=== PATIENT | female | born 1935 | race Two or more races ===

== ENCOUNTER 2019-05-02 13:16 | Emergency (ER) | payer MEDICARE, MEDICAID ==
[~2019-05-02] VITALS: Ht 160 cm; Wt 53.5 kg
--- NOTE | 2019-05-02 13:27 | Emergency Room Report ---
History of Present Illness General Chief Complaint: Altered Level of Consciousness Source: Patient (Garrett Villarreal MD) Present Illness HPI Patient is an 84-year-old female brought in by walk-in after increased altered mental status. Patient had become more confused. Sudden onset of symptoms. Prior history of diabetes as well as pacemaker placement. Patient was noted to be less responsive than usual.Patient had recent fall from standing. She fell this morning at 10 am. Does not take blood thinners other than aspirin. Apparently she had acute onset of diarrhea. This was watery nature. Patient had prior history of diabetes as well as hypertension. She had previous pacemaker placement. (Garrett Villarreal MD) Allergies: Coded Allergies: No Known Allergies (Unverified , 05/02/19) Patient History Past Surgical History: pacemaker Reviewed Nursing Documentation: PMH: Agreed; PSxH: Agreed (Garrett Villarreal MD) Review of Systems All Other Systems: limited - by poor historian (Garrett Villarreal MD) Physical Exam General Appearance: severe distress, Stupor Eyes: bilateral eye other - disconjugate gaze ENT: other - decreased gag reflex Neck: limited range of motion Respiratory: lungs clear Cardiovascular #1: normal inspection Gastrointestinal: tenderness - epigastric Musculoskeletal: other - limited ROM Neurologic: aphasia, other - GCS 3, slight gag present Skin: pallor (Garrett Villarreal MD) Procedures Intubation Intubation : Consent: Emergent Intubation Method: orotracheal Tube Size (cm): 7.5 Medications: Etomidate, Succinylcholine Breath Sounds after Intubation: equal Intubation Complications: no complications Post Intubation Xray: Yes Progress/Xray Impression: Appropriate tube placement Attempts: One Patient Tolerated: Well Complications: None (Anya Lawson DO) Medical Decision Making Diagnostic Impression: Primary Impression: Bilateral subdural hematomas Additional Impressions: Intracranial hemorrhage Mental status, decreased Elevated troponin Anemia ER Course Presented for altered mental status. Differential diagnosis include was not limited to CVA, hyperglycemia, sepsis, anemia among others. Because of complexity of patient's case laboratory tests and imaging studies were ordered. CT imaging was ordered to patient's acute onset of altered mental status after fall.CT the head showed bilateral intracranial hemorrhages. Patient was endorsed to Dr. Pritchard for further management and likely transfer for higher level of care. Patient was discussed with Dr. Samuel at [facility] who agreed to accept the patient. (Garrett Villarreal MD) ER Course This patient was turned over to me by Dr. Villarreal. The patient had suffered a fall earlier this morning and was found to have intracranial hemorrhage with midline shift. The patient's GCS was 3 and therefore she was intubated by rapid sequence intubation. This was uncomplicated. See my procedure note. The patient was given IV Keppra, mannitol and the head of bed was elevated. The patient was emergently transferred to [facility] for neurosurgical expertise. Initially I had ordered a nicardipine drip to control blood pressure, however, the patient's blood pressure decreased spontaneously and the nicardipine drip was unnecessary. The patient was transferred in a critical condition. This patient is critically ill. This patient required complex medical decision- making, aggressive intervention, extensive laboratory workup and monitoring. Critical care time: 40 minutes. Laboratory Tests Test 05/02/19 14:10 White Blood Count 3.0 K/UL (4.8-10.8) L Red Blood Count 2.91 M/UL (4.20-5.40) L Hemoglobin 8.1 G/DL (12.0-16.0) L Hematocrit 24.6 % (37.0-47.0) L Mean Corpuscular Volume 84 FL (80-99) Mean Corpuscular Hemoglobin 27.7 PG (27.0-31.0) Mean Corpuscular Hemoglobin Concent 32.8 G/DL (32.0-36.0) Red Cell Distribution Width 12.9 % (11.6-14.8) Platelet Count 221 K/UL (150-450) Mean Platelet Volume 5.7 FL (6.5-10.1) L Neutrophils (%) (Auto) % (45.0-75.0) Lymphocytes (%) (Auto) % (20.0-45.0) Monocytes (%) (Auto) % (1.0-10.0) Eosinophils (%) (Auto) % (0.0-3.0) Basophils (%) (Auto) % (0.0-2.0) Neutrophils % (Manual) Pending Lymphocytes % (Manual) Pending Platelet Estimate Pending Platelet Morphology Pending Prothrombin Time 13.4 SEC (9.30-11.50) H Prothrombin Time INR 1.3 (0.9-1.1) H Activated Partial Thromboplast Time 37 SEC (23-33) H Sodium Level 136 MMOL/L (136-145) Potassium Level 4.0 MMOL/L (3.5-5.1) Chloride Level 103 MMOL/L (98-107) Carbon Dioxide Level 23 MMOL/L (21-32) Anion Gap 10 mmol/L (5-15) Blood Urea Nitrogen 37 mg/dL (7-18) H Creatinine 1.5 MG/DL (0.55-1.30) H Estimate Glomerular Filtration Rate mL/min (>60) Glucose Level 243 MG/DL (74-106) H Lactic Acid Level 1.70 mmol/L (0.4-2.0) Calcium Level 8.8 MG/DL (8.5-10.1) Total Bilirubin 0.5 MG/DL (0.2-1.0) Aspartate Amino Transferase (AST) 38 U/L (15-37) H Alanine Aminotransferase (ALT) 27 U/L (12-78) Alkaline Phosphatase 47 U/L (46-116) Total Creatine Kinase 264 U/L (26-308) Creatine Kinase MB 9.5 NG/ML (0.0-3.6) H Creatine Kinase MB Relative Index 3.5 Troponin I 0.724 ng/mL (0.000-0.056) Total Protein 9.6 G/DL (6.4-8.2) H Albumin 2.4 G/DL (3.4-5.0) L Globulin 7.2 g/dL Albumin/Globulin Ratio 0.3 (1.0-2.7) L ([facility]) EKG Diagnostic Results Rate: other - Paced Rhythm: other - 60 ST Segments: no acute changes ([facility]) Rhythm Strip Diag. Results EP Interpretation: yes Rate: 60 Rhythm: NSR, no PVC's, no ectopy ([facility]) CT/MRI/US Diagnostic Results CT/MRI/US Diagnostic Results : Imaging Test Ordered: CT head, CT abd/pelvis Impression Impression: Acute, up to 2 cm thick subdural hematoma over the left cerebral convexity associated with mass effect and edema 1.5 cm left to right subfalcine herniation. Partial effacement of the basal cisterns. Unilateral trapping of the right lateral ventricle. Acute, 6 mm right temporal/parietal extra-axial hematoma (subdural versus epidural). Incidental 9 x 3 mm ossified meningioma in the left frontal region. CT abd/pelvis: IMPRESSION: Mild prominence of the CBD. Very questionable punctate stone in the distal CBD. Please correlate clinically. Further evaluation with MRCP may be considered. Extensive artifact limiting evaluation of the epigastrium. Cholelithiasis. Trace left pleural effusion. Basilar atelectasis and dependent phenomena. Trace pericardial fluid. Cardiomegaly and vascular disease. Anasarca Multiple uterine fibroids Dilated urinary bladder. Consider Anguiano placement. Tiny nonobstructive stone suspected in the right kidney. Degenerative changes of the spine as described above. Small umbilical hernia containing small bowel and fat. Pacemaker Note: Evaluation of solid organs is limited on non contrast imaging. (Anya Lawson DO) Status: improved (Garrett Villarreal MD) Disposition: ER [facility] Condition: Critical Garrett Villarreal MD May 02, 2019 13:27 Anya Lawson DO May 02, 2019 15:15
--- NOTE | 2019-05-02 13:50 | NUR ---
came from home with complaints of alterd mental status post fall .on arrival patient is pale looking and alterd to ct scan via gurney
[2019-05-02 14:00] VITALS: BP 190/69
--- NOTE | 2019-05-02 14:00 | NUR ---
ED Nurse Note: PT brought in by family d/t two falls at home. Per family, after second fall, pt started to vomit. Last well known time about 30min - 1 hour ago. Pt's baseline is A+Ox4. When pt finished vomiting, pt became altered mentally. Upon arrival to ED, pt is completely unresponsive to deep pain/sternal rub. GCS 3. Hypoactive gag reflex. Pupils unresponsive to light. Respirations even, but shallow on room air with 98% O2 saturation. Pt is A-paced on the monitor @ 60. BP elevated @ 200 systolic. Family @ bedside. Upper denture removed from patient's mouth and given to family to take home. ED MD @ bedside assessing pt.
[2019-05-02] MEDS ORDERED: levETIRAcetam 500mg/NS100ml 100 ML IVPB ONE ×2 (14:15→15:15)
--- NOTE | 2019-05-02 14:20 | NUR ---
ED Nurse Note: Pt back from CT head and it is positive for bleed. ED MD plan is to intubate. RT called and intubation box brought to bedside.
--- NOTE | 2019-05-02 14:28 | NUR ---
ED Nurse Note: Per verbal order from ED MD, shaed up and administered 20 mg etomidate and 80 mg Succinylcholine for intubation.
[2019-05-02 14:30] LABS: HEMATOCRIT 24.6 % (37.0-47.0); HEMOGLOBIN 8.1 G/DL (12.0-16.0); MEAN CORPUSCULAR VOLUME 84 FL (80-99); PLATELET COUNT 221 K/UL (150-450); RED BLOOD COUNT 2.91 M/UL (4.20-5.40); RED CELL DISTRIBUTION WIDTH 12.9 % (11.6-14.8)
[2019-05-02] MEDS ORDERED: MANNITOL 20% IV ONE (14:30)
--- NOTE | 2019-05-02 14:30 | NUR ---
ED Nurse Note: Pt successfully intubated by ED MD. Full chest rise and equal breath sounds bilaterally. ETT 7.5 @ 21 lip line. RT @ bedside put pt on ventilator.
--- NOTE | 2019-05-02 14:33 | Diagnostic Imaging Report ---
Indication: 83-year-old female altered mental status Technique: Contiguous 5 mm thick transaxial imaging of the head obtained in a Siemens Sensation [address] scanner. Soft tissue and bone windows generated. Automatic Exposure Control was utilized. Total Dose length Product (DLP): 1364.[address] Dose Index Volume (CTDIvol): 60 mGy Comparison: none Findings: There is a large hyperdense subdural hematoma over the left cerebral convexity measuring up to 2 cm in thickness on transaxial images. The hematoma is predominantly hyperdense indicative of acute blood products and is seen over the left frontal, temporal and parietal convexity. There is edema and mass effect of the underlying cerebrum. The left ventricle is compressed. There is midline shift from left to right of about 1.5 cm, measured at the level of the septum pellucidum. There is subdural blood extending into the anterior part of the interhemispheric fissure. There is effacement partially of some of the basal cisterns which appear small. There is a focus of subarachnoid blood within the left parietal lobe. There is evidence of unilateral trapping of the right lateral ventricle which is slightly dilated. There is a small focal extra-axial hematoma (subdural versus epidural) over the right temporal parietal convexity measuring up to about 6 mm. No skull fracture is identified. There is a 3 x 9 mm incidental focus of ossification probably an ossified meningioma extending off the inner table of the skull in the left frontal lobe region. Impression: Acute, up to 2 cm thick subdural hematoma over the left cerebral convexity associated with mass effect and edema 1.5 cm left to right subfalcine herniation. Partial effacement of the basal cisterns. Unilateral trapping of the right lateral ventricle. Acute, 6 mm right temporal/parietal extra-axial hematoma (subdural versus epidural). Incidental 9 x 3 mm ossified meningioma in the left frontal region. Critical value communication. Findings were discussed via telephone with Dr. Garcia via telephone 2:20 PM to 06/29/2019. The CT scanner at [facility] is accredited by the [employer] and the scans are performed using dose optimization techniques as appropriate to a performed exam including Automatic Exposure control.
--- NOTE | 2019-05-02 14:43 | Diagnostic Imaging Report ---
INDICATION: Abdominal pain TECHNIQUE: Continuous helical transaxial imaging of the abdomen and pelvis was obtained from the lung bases to the pubic symphysis. No intravenous contrast was administered. Coronal 2-D reformats were also obtained. Automatic Exposure Control was utilized. Total Dose length Product (DLP): 744.[address] Dose Index Volume (CTDIvol): 14.2 mGy Comparison: none FINDINGS: Lungs: Trace left pleural effusion demonstrated. Reticular and groundglass opacities demonstrated at the dependent posterior basal aspects of the lung bases. Trace pericardial fluid noted. The heart is enlarged. Pacemaker noted. Aorta is moderately calcified.. Liver: There are curvilinear calcifications within the area of the portal triads. These are likely arterial due to calcification of branches of the hepatic artery. Other calcifications similar in appearance noted throughout branches of the aorta as well as aorta itself. Gallbladder/biliary system: Gallstones are present. The proximal CBD may be slightly dilated. There is a hint and very questionable focus of hyperattenuation at the posterior margin of the CBD, which would be the dependent portion.. The finding is questionable as there is considerable artifact in the epigastrium. If patient has elevated bilirubin, or other clinical signs or symptoms that may suggest biliary obstruction or cholestasis, consider further evaluation with MRCP. Spleen: Unremarkable Pancreas: There is a moderate degree of artifact in the epigastric region limiting evaluation. No obvious abnormalities of the pancreas appreciated. Kidneys: Punctate calcification is noted in the right kidney. This could be a tiny nonobstructive stone although there are many small vessel calcifications and that this could be one of those.. Adrenal glands: Unremarkable Bowel: Appendix is normal. Bowel gas pattern appears nonobstructive. There is no free air. Extensive colonic diverticulosis noted. Bladder: The bladder is moderately distended. Consider Anguiano catheter placement. Aorta/IVC: As discussed earlier there is extensive arterial calcifications including the aorta. There is no aneurysm. Peritoneum: There is no free fluid identified. There is an umbilical hernia which contains fat and the some small bowel loops.. Multiple calcifications demonstrated within the uterus consistent with fibroids. Bones: There is narrowing of intervertebral discs and accompanying endplate osteophyte formation. Hypertrophied facet joints also demonstrated.. Mild anterolisthesis demonstrated at L5-S1. Anasarca noted with diffuse subcutaneous edema involving both lower chest and abdomen. IMPRESSION: Mild prominence of the CBD. Very questionable punctate stone in the distal CBD. Please correlate clinically. Further evaluation with MRCP may be considered. Extensive artifact limiting evaluation of the epigastrium. Cholelithiasis. Trace left pleural effusion. Basilar atelectasis and dependent phenomena. Trace pericardial fluid. Cardiomegaly and vascular disease. Anasarca Multiple uterine fibroids Dilated urinary bladder. Consider Anugiano placement. Tiny nonobstructive stone suspected in the right kidney. Degenerative changes of the spine as described above. Small umbilical hernia containing small bowel and fat. Pacemaker Note: Evaluation of solid organs is limited on non contrast imaging. The CT scanner at [facility] is accredited by the [employer] and the scans are performed using dose optimization techniques as appropriate to a performed exam including Automatic Exposure control.
[2019-05-02 14:44] LABS: ANION GAP 10 mmol/L (5-15); BLOOD UREA NITROGEN 37 mg/dL (7-18); CALCIUM 8.8 MG/DL (8.5-10.1); CARBON DIOXIDE 23 MMOL/L (21-32); CHLORIDE 103 MMOL/L (98-107); CREATININE 1.5 MG/DL (0.55-1.30); SODIUM 136 MMOL/L (136-145)
[2019-05-02] MEDS ORDERED: niCARdipine HCl 200 ML IV SCH (14:45)
--- NOTE | 2019-05-02 14:50 | NUR ---
ED Nurse Note: NG tube inserted into left nare @ 55 cm. Xray @ bedside.
[2019-05-02 14:52] LABS: INR 1.3 (0.9-1.1)
[2019-05-02 14:59] LABS: ALANINE AMINOTRANSFERASE 27 U/L (12-78); ALBUMIN 2.4 G/DL (3.4-5.0); ALBUMIN/GLOBULIN RATIO 0.3 (1.0-2.7); ALKALINE PHOSPHATASE 47 U/L (46-116); ASPARTATE AMINO TRANSFERASE 38 U/L (15-37); BILIRUBIN,TOTAL 0.5 MG/DL (0.2-1.0); CKMB 9.5 NG/ML (0.0-3.6); CREATINE KINASE 264 U/L (26-308)
[2019-05-02 15:00] VITALS: BP 165/71
[2019-05-02 15:07] VITALS: BP 116/40
--- NOTE | 2019-05-02 15:07 | NUR ---
ED Nurse Note: About to hang nicardipine drip when blood pressure check was 116/40. Spoke with ED MD whom said to hold off on the drip for now until further instruction. Medication held.
--- NOTE | 2019-05-02 15:14 | Diagnostic Imaging Report ---
Indication: Intubation Comparison: None A single view chest radiograph was obtained. Findings: Endotracheal tube is 4 cm above the ilia in satisfactory position. Nasogastric tube is also present with visualization of the proximal port noted within the stomach lumen. The heart is mildly enlarged. Pacemaker is noted. There is a hazy opacity at the left lung base which could be a pleural effusion and/or underlying parenchymal disease. Bones are osteopenic. IMPRESSION: Endotracheal tube and nasogastric tubes are satisfactory in position. Left basal pleural effusion and/or parenchymal disease such as pneumonia.
--- NOTE | 2019-05-02 15:24 | NUR ---
ED Nurse Note: 16Fr modi inserted. Urine sent to lab
--- NOTE | 2019-05-02 15:26 | NUR ---
ED Nurse Note: [facility] @ bedside to transfer patient to [facility]
--- NOTE | 2019-05-02 15:30 | NUR ---
ED Nurse Note: Pt on two IV medications upon transfer. RN to accompany [facility] on transfer.
--- NOTE | 2019-05-02 15:40 | NUR ---
report given to ashia at [facility] . patient is transferd to [facility] room 8s 46 via 911 transport
[2019-05-02 15:46] VITALS: BP 109/45
--- NOTE | 2019-05-02 15:46 | NUR ---
nurse ramone rn accompanied the patient with rescue [id number]
[2019-05-02 15:50] LABS: APPEARANCE,URINE CLEAR; BILIRUBIN, URINE NEGATIVE (NEGATIVE); COLOR,URINE PALE YELLOW; GLUCOSE, URINE (UA) NEGATIVE (NEGATIVE); KETONES,URINE NEGATIVE (NEGATIVE); LEUKOCYTE ESTERASE ,URINE NEGATIVE (NEGATIVE); NITRITE,URINE NEGATIVE (NEGATIVE); PH,URINE 6 (4.5-8.0); PROTEIN,URINE NEGATIVE (NEGATIVE); UROBILINOGEN,URINE NORMAL MG/DL (0.0-1.0)
--- NOTE | 2019-05-02 16:00 | NUR ---
ED Nurse Note: [facility] and stayed [facility] throughout transfer. Pt transferred safely. Bedside handoff to RN @ [facility].
== END 2019-05-02 15:46 | disposition short-term general hospital (02) ==
LOC: EMR 14:10
DX: S06.5X9A Traumatic subdural hemorrhage with loss of consciousness of unspecified duration, initial encounter (principal); I62.9 Nontraumatic intracranial hemorrhage, unspecified; R41.82 Altered mental status, unspecified; R79.89 Other specified abnormal findings of blood chemistry; D64.9 Anemia, unspecified; E11.9 Type 2 diabetes mellitus without complications; Z79.82 Long term (current) use of aspirin; Z95.0 Presence of cardiac pacemaker
CPT/HCPCS: 31500; 36415; 70450; 71045; 74176; 80053; 81003; 82550; 82553; 82962; 83605; 84484; 85007; 85025; 85610; 85730; 86850; 86900; 86901; 87040; 93005; 96361; 96365; 96375; 96376; 99291; J1953; J2150; J7030